=== PATIENT | male | born 1970 | race Caucasian/White ===

== ENCOUNTER 2016-08-10 00:24 | Emergency (ER) | payer OTHER ==
--- NOTE | 2016-08-10 00:31 | PDOC ---
History of Present Illness - General Chief Complaint: Eye Problem Stated Complaint: RT EYE SWELLING - History of Present Illness Initial Comments: This 46-year-old man with a history of hypertension , DM, hyperlipidemia presents with a few day history of bilateral eye itching followed by swelling/ pain in right upper eyelid for the last day. The patient has a history of ALLERGIC conjunctivitis in the past and had been given ketitofen eyedrops by his doctor. He used these drops and itching resolved. In the last 24 hours, however he noted inflammation of the upper eyelid on the right side. He denies crusting/discharge of eyelid margin. No recent viral illnesses. No fevers/ chills or upper respiratory symptoms. He notes no change in his vision. PMH as noted above Medications as noted below No known ALLERGIES Past History - Past Medical History Allergies/Adverse Reactions: Allergies Allergy/AdvReac Type Severity Reaction Status Date / Time No Known Allergies Allergy Verified 12/14/14 21:19 Home Medications: Ambulatory Orders Glipizide [Glipizide ER] 5 mg PO DAILY 02/21/14 Lisinopril [Zestril] 2.5 mg PO DAILY 02/21/14 Loratadine [Claritin -] 10 mg PO DAILY PRN 02/21/14 Metformin HCl [Metformin HCl ER] 1,000 mg PO BID 02/21/14 Simvastatin [Zocor -] 40 mg PO HS 02/21/14 Erythromycin 0.5% Eye Ointment [Erythromycin 0.5% Eye Ointment -] 1 applic OD TID #1 tube 08/10/16 Ketotifen Fumarate [Allergy Eye Drops] 1 drop OP BID #1 bottle 08/10/16 Diabetes: Yes HTN: Yes Hypercholesterolemia: Yes - Immunization History Immunization Up to Date: Yes (2012) - Psycho/Social/Smoking Cessation Hx Anxiety: No Suicidal Ideation: No Smoking History: Never smoked Hx Alcohol Use: Yes (SOCIAL 4 X MONTH) Substance Use Type: None Review of Systems - Review of Systems Able to Perform ROS?: Yes Comments:: 12 point review of systems is negative except for what is noted in the history of present illness *Physical Exam - Physical Exam Comments: GENERAL: Adult male, alert and oriented 3, in no acute distress HEAD: Normal with no signs of trauma. EYES: Right eye-moderate edema, mild erythema upper eyelid; no hordeolum/ chalazion evident Small amount of crusting of eyelash margin lateral aspect PERRLA, EOMI, sclera anicteric, conjunctiva mildly erythematous Left eyeeyelids nonedematous/non-erythematous; conjunctiva minimally erythematous Pupil 3 mm, reactive and equal , EOMI, sclerae anicteric. ENT: Ears normal, nares patent, oropharynx clear without exudates. Dry mucous membranes. SKIN: Warm, Dry, normal turgor, no rashes or lesions noted. Medical Decision Making - Medical Decision Making Clinical presentation most consistent with a history of ALLERGIC conjunctivitis with subsequent acute blepharitis of the right upper eyelid. It appears the patient has had this in the past. He has responded to the antihistamine drops that his supervisory historian has given him in the past. He should continue these but also add erythromycin ointment to the eyelid margin on the right side. First dose of erythromycin ointment applied to the eyelid margin, right side. Patient will continue this 3 times a day for the next week. Since patient is unsure of previous supervisory historian, referral information for given to the patient. He should follow-up with him within the next week. If he has severe swelling/pain/redness or fever prior to seeing ophthalmology, he should return to the emergency room *DC/Admit/Observation/Transfer Diagnosis at time of Disposition: Allergic blepharitis Qualifiers: Laterality: right Qualified Code(s): H01.113 - Allergic dermatitis of right eye , unspecified eyelid - Discharge Dispostion Disposition: HOME Condition at time of disposition: Stable - Prescriptions Prescriptions: Ketotifen Fumarate [Allergy Eye Drops] 1 drop OP BID #1 bottle Erythromycin 0.5% Eye Ointment [Erythromycin 0.5% Eye Ointment -] 1 applic OD TID #1 tube - Referrals Referrals: Chioma Butler MD [Primary Care Provider] - Warren Gan MD [Staff Physician] - 1 week - Patient Instructions Printed Discharge Instructions: Blepharitis Additional Instructions: warm compresses to right eye erythromycin ointment to both eyes 3 times a day for the next 5 days Continue ketotifen eyedrops to both eyes twice a day Return if you have severe pain/redness/swelling or decreased vision Follow-up with supervisory historian(Dr Gan) within 1 week
[2016-08-10 00:40] VITALS: BP 125/83; PULSE 78; TEMP 99; BMI 36.0
[2016-08-10] MEDS ORDERED: ERYTHROMYCIN 0.5% OPHTHALMIC OINTMENT 3.5 GM TUBE ONE (00:51)
== END 2016-08-10 01:06 | disposition home or self-care (01) ==
LOC: FER 00:24
DX: H01.113 Allergic dermatitis of right eye, unspecified eyelid (principal); I10 Essential (primary) hypertension; E11.9 Type 2 diabetes mellitus without complications; E78.5 Hyperlipidemia, unspecified
CPT/HCPCS: 99281-25

== ENCOUNTER 2018-09-03 23:32 | Emergency (ER) | payer OTHER ==
[2018-09-03 23:43] VITALS: BP 115/83; PULSE 69; TEMP 98.5; BMI 37.8
--- NOTE | 2018-09-03 23:56 | PDOC ---
History of Present Illness - General Chief Complaint: Vomiting/Diarrhea Stated Complaint: COUGH,DIARRHEA,VOMITING Time Seen by Provider: 09/03/18 23:43 History Source: Patient Exam Limitations: Language Barrier - History of Present Illness Initial Comments: 09/03/18 23:51 This is a 48-year-old man comes in with his daughter and for evaluation of a cough. Patient said that he has had several episodes of cough that is been so hard that he has had some post tussive emesis. Patient denies any shortness of breath, nausea or vomiting other than the posttussive, abdominal pain, fevers or chills. Patient is complaining of some pleuritic type chest pain. Patient also said he has had some diarrhea. Patient denies any abdominal pain. Patient has a history significant for diabetes and hypertension. Patient denies any recent travel. Patient said he has had 1 episode of loose stools. Patient denies any abdominal pain or blood in the stools. Allergies: as per nursing notes Past Medical History: Hypertension and diabetes Social history: Lives with family. No smoking. No alcohol. No illicit drugs. Surgical history: None General: No fevers or chills, no weakness, no weight loss HEENT: No change in vision. No sore throat,. No ear pain CardioVascular: no chest discomfort. No shortness of breath Respiratory:+ cough, or wheezing. Gastrointestinal: no nausea, + post tussive vomiting, + diarrhea no constipation, No rectal bleeding Genitourinary: No dysuria, hematuria, or frequency Musculoskeletal: No joint or muscle pain or swelling Neurologic: No headache, vertigo, dizziness or loss of consciousness Psychiatric: nor depression Skin: No rashes or easy bruising Endocrine: no increased thirst or abnormal weight change Allergic: no skin or latex allergy All other systems reviewed and normal Exam: General: Well-nourished well-developed individual, no acute distress HEENT: Throat: Normal, tonsils normal, no erythema or exudate Neck: Supple, no meningeal signs, no lymphadenopathy Eyes::Pupils equal reactive and round, extraocular motion intact Chest: Nontender to palpation Cardiac: S1-S2 normal, regular rate and rhythm, no murmurs rubs or gallops Respiratory: Lungs clear to auscultation bilateral Abdomen: Soft, nondistended, normal bowel sounds, there is no tenderness on palpation diffusely Extremities: Warm, dry, no cyanosis, clubbing, or edema Skin: No rashes Neuro: Alert and oriented x3, CN II - XII intact, nonfocal exam with normal strength, normal sensation, normal reflexes, normal gait, Psych: Normal mood and affect 09/03/18 23:52 Assessment and plan: This is a 48-year-old male who comes in complaining of cough times a number of days. Cough is worse at night. Patient was prescribed Tessalon Perles and also had had one episode of loose bowel movements so told him to take some [id number] Imodium as directed on the bottle. Otherwise patient discharged and told follow-up with his primary care doctor Past History - Past Medical History Allergies/Adverse Reactions: Allergies Allergy/AdvReac Type Severity Reaction Status Date / Time No Known Allergies Allergy Verified 09/03/18 23:39 Home Medications: Ambulatory Orders Glipizide [Glipizide ER] 10 mg PO DAILY 02/21/14 Lisinopril [Zestril] 2.5 mg PO DAILY 02/21/14 Simvastatin [Zocor -] 40 mg PO HS 02/21/14 metFORMIN HCL [Metformin HCl ER] 1,000 mg PO BID 02/21/14 COPD: No Diabetes: Yes HTN: Yes Hypercholesterolemia: Yes - Immunization History Immunization Up to Date: Yes (2012) - Suicide/Smoking/Psychosocial Hx Smoking History: Never smoked Have you smoked in the past 12 months: No Information on smoking cessation initiated: No Hx Alcohol Use: No Drug/Substance Use Hx: No Substance Use Type: None *Physical Exam - Vital Signs Last Vital Signs Temp Pulse Resp BP Pulse Ox 98.5 F 69 18 115/83 96 09/03/18 23:40 09/03/18 23:40 09/03/18 23:40 09/03/18 23:40 09/03/18 23:40 *DC/Admit/Observation/Transfer Diagnosis at time of Disposition: Viral upper respiratory illness - Discharge Dispostion Disposition: HOME Decision to Admit order: No - Referrals - Patient Instructions Additional Instructions: Take Tessalon Perles one as often as 3 times a day for the cough. Tylenol or Motrin if needed for the pleuritic-type chest pain. Some [id number] Imodium and take as directed on the bottle for loose stools or diarrhea. Return to the emergency department immediately with ANY new, persistent or worsening symptoms. Continue any medications as previously prescribed by your physician. You should follow up with your primary doctor as soon as possible regarding today's emergency department visit. . Please make sure your doctor reviews the results of your emergency evaluation. Thank you for coming to the Emergency Department today for your care. It was a pleasure to see you today. Please note that your evaluation is INCOMPLETE until you follow-up with your doctor. - Post Discharge Activity
== END 2018-09-04 00:16 | disposition home or self-care (01) ==
LOC: FER 23:32
DX: J06.9 Acute upper respiratory infection, unspecified (principal); B97.89 Other viral agents as the cause of diseases classified elsewhere; I10 Essential (primary) hypertension; E11.9 Type 2 diabetes mellitus without complications; E78.00 Pure hypercholesterolemia, unspecified; Z79.84 Long term (current) use of oral hypoglycemic drugs
CPT/HCPCS: 99283-25; 99284-25

== ENCOUNTER 2024-02-13 15:42 | Emergency (ER) | payer OTHER ==
[2024-02-13 16:03] VITALS: BP 119/80; PULSE 65; RESP 18; TEMP 98.8; BMI 37.0
== END 2024-02-13 16:40 | disposition home or self-care (01) ==
LOC: FER 15:42
DX: Z48.02 Encounter for removal of sutures (principal)
CPT/HCPCS: 99281-25